=== PATIENT | male | born 1950 | race Caucasian/White ===

== ENCOUNTER 2017-07-08 05:35 | Inpatient (IN) | payer OTHER, MEDICARE ==
[2017-07-08] VITALS (11 sets, daily range): BP systolic 106–165; BP diastolic 82–112
[~2017-07-08] VITALS: Ht 190.5 cm; Wt 108.9 kg
[2017-07-08] MEDS ORDERED: ELIQUIS2.5 M1 PO (06:27)
[2017-07-08] MEDS ORDERED: DILTIAZEM ER120 MG PO (06:28)
[2017-07-08] MEDS ORDERED: MELOXICAM15 MG PO (06:29)
[2017-07-08 06:30] LABS: BASO % 0.2 % (0.0-1.0); HEMATOCRIT 46.9 % (42.0-52.0); HEMOGLOBIN 16.9 g/dl (14.0-18.0); LYMPH # 1.3 10*3/uL (1.3-4.4); LYMPH % 19.9 % (27.0-41.0); MEAN CELL VOLUME 89.5 fl (80.0-94.0); MEAN CORPUSCULAR HGB 32.3 pg (27.0-31.0); MEAN PLATELET VOLUME 9.9 fl (9.6-12.3); MONO # 1.1 10*3/uL (0.1-1.0); MONO % 17.1 % (3.0-9.0); NEUT % 62.5 % (47.0-73.0); PLATELET COUNT AUTOMATED 123 10*3/uL (130-400); RED BLOOD COUNT 5.24 10*6/uL (4.50-5.90); RED CELL DISTRI WIDTH 12.9 % (0-14.5); WHITE BLOOD COUNT 6.4 10*3/uL (4.8-10.8)
[2017-07-08 06:40] LABS: ACT PARTIAL THROMBO TIME 28.8 SECONDS (20.8-31.5)
[2017-07-08] MEDS ORDERED: ELIQUIS5 M1 PO (06:45)
[2017-07-08 06:46] LABS: ALBUMIN 2.8 gm/dl (3.1-4.5); ALKALINE PHOSPHATASE 77 U/L (45-117); BUN 14 mg/dl (7-24); CHLORIDE 101 mmol/L (98-107); CREATININE 0.71 mg/dL (0.70-1.30); LIPASE 190 U/L (73-393); SGOT/AST 67 IU/L (3-35); SGPT/ALT 42 U/L (12-78); SODIUM 136 mmol/L (136-145); TROPONIN I 0.022 ng/ml (<0.045)
[2017-07-08] MEDS ORDERED: FLECAINIDE ACE100 M1 PO (06:46)
[2017-07-08 12:44] LABS: BILIRUBIN 1+ (NEGATIVE); BLOOD NEGATIVE (NEGATIVE); CLARITY SL CLOUDY (CLEAR); COLOR YELLOW (YELLOW); GLUCOSE NEGATIVE (NEGATIVE); KETONE 1+ (NEGATIVE); LEUKO ESTERASE NEGATIVE (NEGATIVE); NITRITE NEGATIVE (NEGATIVE); SPECIFIC GRAVITY >= 1.030 (1.005-1.030)
[2017-07-08 13:21] LABS: BACTERIA 1+; CALCIUM OXALATE CRYSTALS 1+; MUCOUS 1+
[2017-07-09] VITALS: BP 136/84
[2017-07-09 07:58] LABS: HEMATOCRIT 44.4 % (42.0-52.0); HEMOGLOBIN 15.6 g/dl (14.0-18.0); MEAN CELL VOLUME 91.2 fl (80.0-94.0); MEAN CORPUSCULAR HGB CONC 35.1 g/dl (33.0-37.0); MEAN PLATELET VOLUME 10.4 fl (9.6-12.3); PLATELET COUNT AUTOMATED 116 10*3/uL (130-400); RED BLOOD COUNT 4.87 10*6/uL (4.50-5.90); RED CELL DISTRI WIDTH 13.1 % (0-14.5); WHITE BLOOD COUNT 7.4 10*3/uL (4.8-10.8)
[2017-07-09 08:00] VITALS: BP 150/90
[2017-07-09 08:23] LABS: BURR CELLS FEW; PLATELET SUFFICIENCY LOW (NORMAL); TOTAL CELLS COUNTED 100 #CELLS
[2017-07-09 08:24] LABS: ALBUMIN 2.7 gm/dl (3.1-4.5); ALKALINE PHOSPHATASE 78 U/L (45-117); BUN 17 mg/dl (7-24); CHLORIDE 105 mmol/L (98-107); CREATININE 0.76 mg/dL (0.70-1.30); PHOSPHOROUS 2.9 mg/dL (2.5-4.9); POTASSIUM 3.6 mmol/L (3.5-5.1); SGOT/AST 52 IU/L (3-35); SGPT/ALT 43 U/L (12-78); SODIUM 139 mmol/L (136-145); TOTAL PROTEIN 6.7 gm/dL (6.4-8.2)
[2017-07-09 08:29] LABS: FREE T4 1.56 ng/dl (0.76-1.46); THYROID STIM HORMONE (HS) 0.202 uIU/ml (0.358-4.75)
[2017-07-09 09:01] LABS: VITAMIN D, 25-HYDROXY 17.4 ng/mL (30-100)
[2017-07-09 12:00] VITALS: BP 128/90
[2017-07-09 16:00] VITALS: BP 130/79
[2017-07-09 20:00] VITALS: BP 137/88
[2017-07-10] VITALS: BP 143/92
[2017-07-10 07:15] LABS: HEMOGLOBIN 15.3 g/dl (14.0-18.0); MEAN CELL VOLUME 93.6 fl (80.0-94.0); MEAN CORPUSCULAR HGB 32.6 pg (27.0-31.0); MEAN CORPUSCULAR HGB CONC 34.8 g/dl (33.0-37.0); MEAN PLATELET VOLUME 10.4 fl (9.6-12.3); PLATELET COUNT AUTOMATED 129 10*3/uL (130-400); RED CELL DISTRI WIDTH 13.5 % (0-14.5); WHITE BLOOD COUNT 13.5 10*3/uL (4.8-10.8)
[2017-07-10 07:34] LABS: BUN 22 mg/dl (7-24); CHLORIDE 107 mmol/L (98-107); CREATININE 0.67 mg/dL (0.70-1.30); POTASSIUM 3.7 mmol/L (3.5-5.1); SODIUM 141 mmol/L (136-145)
[2017-07-10 07:50] LABS: ATYPICAL LYMPHS 2 % (0-0); TOTAL CELLS COUNTED 100 #CELLS
[2017-07-10 07:52] LABS: BURR CELLS MODERATE; PLATELET SUFFICIENCY LOW (NORMAL)
[2017-07-10 08:00] VITALS: BP 160/90
[2017-07-10 12:00] VITALS: BP 142/90
[2017-07-10] MEDS ORDERED: TEMAZEPAM15 M1 PO (12:54)
[2017-07-10] MEDS ORDERED: PREDNISONE10 MG PO (12:54)
[2017-07-10] MEDS ORDERED: LEVOFLOXACIN500 MG PO (12:54)
== END 2017-07-10 14:13 | disposition home or self-care (01) | DRG 872 ==
LOC: ED 05:35 → EDHOLD 07:58 → 5E 08:32
PROVIDERS: Emergency Medicine Emergency Medical Services; Family Medicine Adult Medicine; Internal Medicine
DX: A41.9 Sepsis, unspecified organism (principal); D69.6 Thrombocytopenia, unspecified; A69.20 Lyme disease, unspecified; J44.0 Chronic obstructive pulmonary disease with (acute) lower respiratory infection; E83.42 Hypomagnesemia; I48.0 Paroxysmal atrial fibrillation; J44.1 Chronic obstructive pulmonary disease with (acute) exacerbation; I10 Essential (primary) hypertension; E87.6 Hypokalemia; R73.9 Hyperglycemia, unspecified; G47.00 Insomnia, unspecified; Z87.891 Personal history of nicotine dependence; Z82.3 Family history of stroke; Z79.899 Other long term (current) drug therapy

== ENCOUNTER → 2022-03-09 | Outpatient (CLI) | payer OTHER ==
[~2022-03-09] MED LIST: DILTIAZEM ER120 MG PO; ELIQUIS2.5 M1 PO; ELIQUIS5 M1 PO; FLECAINIDE ACE100 M1 PO; LEVOFLOXACIN500 MG PO; MELOXICAM15 MG PO; PREDNISONE10 MG PO; TEMAZEPAM15 M1 PO
== END | disposition home or self-care (01) ==
LOC: RESCLI 09:09
PROVIDERS: ATTEND Internal Medicine
DX: M15.0 Primary generalized (osteo)arthritis (principal); I10 Essential (primary) hypertension; I48.0 Paroxysmal atrial fibrillation; J44.1 Chronic obstructive pulmonary disease with (acute) exacerbation; L40.9 Psoriasis, unspecified; M12.9 Arthropathy, unspecified; N20.0 Calculus of kidney; K21.9 Gastro-esophageal reflux disease without esophagitis; Z98.890 Other specified postprocedural states; Z79.82 Long term (current) use of aspirin; Z79.899 Other long term (current) drug therapy

== ENCOUNTER → 2022-08-20 | Outpatient (CLI) | payer OTHER ==
[2022-08-20 11:19] LABS: BASO # 0.1 10*3/uL (0.0-0.1); BASO % 0.6 % (0.0-1.0); EOS # 0.1 10*3/uL (0.0-0.4); EOS % 1.5 % (1.0-4.0); LYMPH % 22.8 % (27.0-41.0); MEAN CELL VOLUME 92.1 fl (80.0-94.0); MEAN CORPUSCULAR HGB 30.9 pg (27.0-31.0); MEAN CORPUSCULAR HGB CONC 33.5 g/dl (33.0-37.0); MEAN PLATELET VOLUME 9.8 fl (9.6-12.3); MONO # 1.1 10*3/uL (0.1-1.0); MONO % 12.1 % (3.0-9.0); NEUT # 5.5 10*3/uL (2.3-7.9); NEUT % 62.7 % (47.0-73.0); PLATELET COUNT AUTOMATED 207 10*3/uL (130-400); RED BLOOD COUNT 5.54 10*6/uL (4.50-5.90); RED CELL DISTRI WIDTH 13.2 % (0-14.5); WHITE BLOOD COUNT 8.8 10*3/uL (4.8-10.8)
[2022-08-20 11:37] LABS: ALKALINE PHOSPHATASE 109 U/L (46-116); BUN 15 mg/dl (9-23); CHLORIDE 102 mmol/L (98-107); POTASSIUM 3.9 mmol/L (3.4-5.1); SGPT/ALT 19 U/L (10-49); TOTAL PROTEIN 7.8 gm/dL (6.0-8.0)
== END | disposition home or self-care (01) ==
LOC: LAB 10:30
PROVIDERS: ATTEND Internal Medicine
DX: I10 Essential (primary) hypertension (principal)

== ENCOUNTER 2022-12-22 05:36 | Emergency (ER) | payer OTHER ==
[~2022-12-22] VITALS: Ht 190.5 cm; Wt 99.8 kg
[2022-12-22 06:33] LABS: ALKALINE PHOSPHATASE 115 U/L (46-116); BUN 13 mg/dl (9-23); CHLORIDE 99 mmol/L (98-107); LIPASE 38 U/L (12-53); POTASSIUM 3.4 mmol/L (3.4-5.1); SGPT/ALT 83 U/L (10-49); TOTAL PROTEIN 5.8 gm/dL (6.0-8.0)
[2022-12-22 06:42] LABS: HEMATOCRIT 33.2 % (42.0-52.0)
[2022-12-22 06:45] LABS: MEAN CELL VOLUME 90.7 fl (80.0-94.0); MEAN CORPUSCULAR HGB 30.6 pg (27.0-31.0); MEAN CORPUSCULAR HGB CONC 33.7 g/dl (33.0-37.0); MEAN PLATELET VOLUME 11.1 fl (9.6-12.3); NUCLEATED RED BLOOD CELL 0.1 10*3/uL (0.0-0.0); NUCLEATED RED BLOOD CELL 1.3 % (0.0-0.0); RED BLOOD COUNT 3.66 10*6/uL (4.50-5.90); RED CELL DISTRI WIDTH 12.6 % (0-14.5); WHITE BLOOD COUNT 3.9 10*3/uL (4.8-10.8)
[2022-12-22 06:46] LABS: MANUAL DIFF REFLEX YES
[2022-12-22 06:47] LABS: PLATELET COUNT AUTOMATED 9 10*3/uL (130-400)
[2022-12-22 07:02] LABS: ATYPICAL LYMPHS 3 % (0-0); BURR CELLS FEW; PLATELET SUFFICIENCY LOW (NORMAL); POLYCHROMASIA SLIGHT; ROULEAUX SLIGHT; TOTAL CELLS COUNTED 100 #CELLS
[2022-12-22 07:03] LABS: TOXIC GRANULATION MODERATE
== END 2022-12-22 09:35 | disposition short-term general hospital (02) ==
LOC: ED 05:36
PROVIDERS: Internal Medicine
DX: D69.6 Thrombocytopenia, unspecified (principal); R10.84 Generalized abdominal pain; J96.01 Acute respiratory failure with hypoxia; J18.9 Pneumonia, unspecified organism; J44.9 Chronic obstructive pulmonary disease, unspecified; I48.91 Unspecified atrial fibrillation; Z98.890 Other specified postprocedural states; Z87.891 Personal history of nicotine dependence

== ENCOUNTER 2023-05-28 09:07 | Emergency (ER) | payer OTHER ==
[~2023-05-28] VITALS: Ht 190.5 cm; Wt 104.3 kg
[2023-05-28 09:32] LABS: BASO # 0.1 10*3/uL (0.0-0.1); BASO % 0.9 % (0.0-1.0); EOS # 0.2 10*3/uL (0.0-0.4); EOS % 2.9 % (1.0-4.0); HEMATOCRIT 38.9 % (42.0-52.0); LYMPH # 1.8 10*3/uL (1.3-4.4); LYMPH % 26.6 % (27.0-41.0); MEAN CELL VOLUME 90.7 fl (80.0-94.0); MEAN CORPUSCULAR HGB 29.6 pg (27.0-31.0); MEAN CORPUSCULAR HGB CONC 32.6 g/dl (33.0-37.0); MEAN PLATELET VOLUME 9.4 fl (9.6-12.3); MONO # 0.8 10*3/uL (0.1-1.0); NEUT % 57.3 % (47.0-73.0); PLATELET COUNT AUTOMATED 175 10*3/uL (130-400); RED BLOOD COUNT 4.29 10*6/uL (4.50-5.90); RED CELL DISTRI WIDTH 17.2 % (0-14.5); WHITE BLOOD COUNT 6.9 10*3/uL (4.8-10.8)
[2023-05-28] MEDS ORDERED: TRELEGY ELLIPT1 EACH INH (09:34)
[2023-05-28] MEDS ORDERED: COSENTYX S150 MG/1 M SQ (09:35)
[2023-05-28] MEDS ORDERED: DOCUSATE SODIU100 M3 PO (09:36)
[2023-05-28] MEDS ORDERED: Ondansetron4 MG PO (09:37)
[2023-05-28] MEDS ORDERED: PROTONIX TR40 M1 PO (09:37)
[2023-05-28] MEDS ORDERED: PROAIR DIGIHAL90 MCG INH (09:38)
[2023-05-28 09:43] LABS: ACT PARTIAL THROMBO TIME 29.8 SECONDS (20.0-32.1)
[2023-05-28 09:52] LABS: ALKALINE PHOSPHATASE 158 U/L (46-116); BUN 7 mg/dl (9-23); CHLORIDE 109 mmol/L (98-107); POTASSIUM 3.1 mmol/L (3.4-5.1); SGPT/ALT 19 U/L (5-49); TOTAL PROTEIN 6.5 gm/dL (6.0-8.0)
== END 2023-05-28 14:27 | disposition short-term general hospital (02) ==
LOC: ED 09:07
PROVIDERS: Student in an Organized Health Care Education/Training Program
DX: J93.83 Other pneumothorax (principal); M54.9 Dorsalgia, unspecified; M54.2 Cervicalgia; R07.89 Other chest pain; C22.0 Liver cell carcinoma; J44.9 Chronic obstructive pulmonary disease, unspecified; I48.91 Unspecified atrial fibrillation; Z98.890 Other specified postprocedural states; Z87.891 Personal history of nicotine dependence

== ENCOUNTER 2023-06-21 20:34 | Emergency (ER) | payer OTHER ==
[~2023-06-21] VITALS: Ht 190.5 cm; Wt 99.8 kg
[~2023-06-21 20:34] MED LIST changes: +COSENTYX S150 MG/1 M SQ; +DOCUSATE SODIU100 M3 PO; +Ondansetron4 MG PO; +PROAIR DIGIHAL90 MCG INH; +PROTONIX TR40 M1 PO; +TRELEGY ELLIPT1 EACH INH
[2023-06-21 21:09] LABS: BASO % 0.2 % (0.0-1.0); EOS # 0.1 10*3/uL (0.0-0.4); EOS % 0.6 % (1.0-4.0); HEMATOCRIT 36.8 % (42.0-52.0); LYMPH # 1.1 10*3/uL (1.3-4.4); LYMPH % 7.9 % (27.0-41.0); MEAN CELL VOLUME 89.3 fl (80.0-94.0); MEAN CORPUSCULAR HGB 28.4 pg (27.0-31.0); MEAN CORPUSCULAR HGB CONC 31.8 g/dl (33.0-37.0); MEAN PLATELET VOLUME 10.4 fl (9.6-12.3); MONO % 7.5 % (3.0-9.0); NEUT # 11.2 10*3/uL (2.3-7.9); NEUT % 83.3 % (47.0-73.0); PLATELET COUNT AUTOMATED 110 10*3/uL (130-400); RED BLOOD COUNT 4.12 10*6/uL (4.50-5.90); RED CELL DISTRI WIDTH 16.3 % (0-14.5); WHITE BLOOD COUNT 13.4 10*3/uL (4.8-10.8)
[2023-06-21 21:16] LABS: ACT PARTIAL THROMBO TIME 36.6 SECONDS (20.0-32.1)
[2023-06-21 21:25] LABS: ALKALINE PHOSPHATASE 119 U/L (46-116); BUN 12 mg/dl (9-23); CHLORIDE 105 mmol/L (98-107); LIPASE 44 U/L (12-53); POTASSIUM 3.6 mmol/L (3.4-5.1); SGPT/ALT 10 U/L (5-49); TOTAL PROTEIN 6.9 gm/dL (6.0-8.0)
[2023-06-22 01:28] LABS: BILIRUBIN Negative (Negative); BLOOD 2+ (Negative); CLARITY Clear (Clear); COLOR Yellow (Yellow); GLUCOSE Negative (Negative); KETONE Negative (Negative); LEUKO ESTERASE Negative (Negative); NITRITE Negative (Negative); SPECIFIC GRAVITY >= 1.030 (1.001-1.030)
[2023-06-22 01:35] LABS: RBC 16-20 rbc/hpf (0-2); WBC 0-2 wbc/hpf (0-5)
== END 2023-06-22 04:06 | disposition short-term general hospital (02) ==
LOC: ED 20:34
PROVIDERS: Internal Medicine
DX: A41.9 Sepsis, unspecified organism (principal); T81.44XA Sepsis following a procedure, initial encounter; J44.9 Chronic obstructive pulmonary disease, unspecified; I48.91 Unspecified atrial fibrillation; Z98.890 Other specified postprocedural states; Z87.891 Personal history of nicotine dependence

== ENCOUNTER → 2023-09-15 | Outpatient (CLI) | payer OTHER | END | disposition home or self-care (01) | LOC: RESCLI 02:11 | PROVIDERS: ATTEND Internal Medicine | DX: I48.0 Paroxysmal atrial fibrillation (principal); J44.9 Chronic obstructive pulmonary disease, unspecified; K21.9 Gastro-esophageal reflux disease without esophagitis; M06.9 Rheumatoid arthritis, unspecified; C22.0 Liver cell carcinoma; Z88.8 Allergy status to other drugs, medicaments and biological substances; Z79.899 Other long term (current) drug therapy; Z98.890 Other specified postprocedural states ==